=== PATIENT | female | born 1990 | race Two or more races ===

== ENCOUNTER 2024-03-16 06:50 | Inpatient (IN) | payer MEDICAID, OTHER ==
[~2024-03-16] VITALS: Ht 152.4 cm; Wt 91.2 kg
[2024-03-16] VITALS (9 sets, daily range): BP systolic 98–136; BP diastolic 47–70; PULSE 62–95; RESP 16–22; TEMP 97.4–98.5; O2SAT 95–100
[2024-03-16 07:35] LABS: Basophils # (auto) 0 10 ^3/uL (0-0.2); Basophils % (auto) 0.4 % (0.0-2.0); Eosinophils # (auto) 0.1 10 ^3/uL (0-0.8); Hematocrit 37.2 % (36.0-46.0); Hemoglobin 12.9 g/dL (12.2-16.2); Lymphocytes % (auto) 22.8 % (10.0-50.0); Mean Corpuscular Hemoglobin 31.2 pg (28.0-32.0); Mean Corpuscular Hgb Conc. 34.8 g/dL (32.0-36.0); Mean Corpuscular Volume 89.7 fL (80.0-100.0); Monocytes # (auto) 0.6 10 ^3/uL (0-1.3); Neutrophils # (auto) 6.1 10 ^3/uL (1.6-8.6); Neutrophils % (auto) 68.8 % (37.0-80.0); Platelet Count (auto) 176 10^3/uL (140-450); Red Blood Cells 4.14 10^6/uL (4.0-5.20); White Blood Cell 8.8 10^3/uL (4.4-10.8)
[2024-03-16 07:47] LABS: INR 0.94 (0.9-1.15); Partial Thromboplastin Time 25.5 SEC (24.5-34.5)
[2024-03-16 07:50] LABS: Alanine Aminotransferase 11 U/L (7-40); Albumin 4.1 g/dL (3.2-4.8); Anion Gap 7 (5-15); Aspartate Aminotransferase 24 U/L (13-40); BUN/Creatinine Ratio 13.8 (10.0-20.0); Bilirubin, Total 0.7 mg/dL (0.2-1.0); Calcium 9.8 mg/dL (8.7-10.4); Carbon Dioxide 25 mmol/L (20-31); Chloride 105 mmol/L (98-107); Glucose 79 mg/dL (74-106); Potassium 3.7 mmol/L (3.5-5.1); Sodium 137 mmol/L (136-145); Total Protein 7.1 g/dL (5.7-8.2)
[2024-03-16 07:51] LABS: Alkaline Phosphatase 146 U/L (46-116); Blood Urea Nitrogen 9 mg/dL (9-23)
[2024-03-16 08:38] LABS: Urine Bacteria None Seen /hpf (None Seen)
[2024-03-16 08:45] LABS: Urine Blood Negative /uL (Negative); Urine Clarity Turbid (Clear); Urine Color Yellow (Yellow); Urine Protein, UAD Negative (Negative); Urine Specific Gravity 1.019 (1.001-1.035); Urine Squamous Epithelial Cell MOD /hpf (<5); Urine Urobilinogen Normal (Negative); Urine WBC 2 /hpf (0 - 5); Urine pH 6.5 (5.0-9.0)
[2024-03-16 09:37] LABS: Barbiturate Scree,Urine Neg (NEGATIVE); Cannabinoid Screen, Urine Neg (NEGATIVE); Phencyclidine Screen, Urine Neg (NEGATIVE)
[2024-03-16 09:38] LABS: Amphetamine Screen, Urine Neg (NEGATIVE); Benzodiazephine Screen, Urine Neg (NEGATIVE); Cocaine Screen, Urine Neg (NEGATIVE); Opiate Scree,Urine Neg (NEGATIVE)
[2024-03-16] MEDS: LACTATED RINGER'S 1,000 ML IV ONE (11:27)
--- NOTE | 2024-03-16 12:32 | DVHHP2 ---
OB CC & HPI Date Date of Admission: Mar 16, 2024 Patient Identification: : 4 Para: 3 EGA: 39.2 wk Chief Complaints: Reason for admission: section History of Present Complaints Term IUP 39+ weeks, scheduled for repeat C/S and BTL Hx of C/S x 3. No acute complaints. No labor pain, leaking of fluid or vaginal bleeding Reports normal movements Past Medical History Cardiac: No pertinent Hx Pulmonary: No pertinent Hx Central Nervous System: No pertinent Hx GI: No pertinent Hx Hemotology/Oncology: No pertinent Hx Hepatobiliary: No pertinent Hx Psychiatric: No pertinent Hx Musculoskeletal: No pertinent Hx Rheumotologic: No pertinent Hx Infectious Disease: No peritnent Hx ENT: No pertinent Hx Renal/: No pertinent Hx Endocrine: No pertinent Hx Dermatology: No pertinent Hx Past Surgical History: OB History OB History Care: Good Care Ultrasounds: Normal mid trimester US Obstetrical Complications: None Medical Complications: None Allergies: Coded Allergies: NO KNOWN ALLERGIES (Unverified , 03/16/24) Current Medications Current Medications Medications (Trade) Dose Ordered Sig/Laura Route PRN Reason Start Time Stop Time Status Last Admin Lactated Ringer's 1,000 ml @ 125 mls/hr Q8H IV 03/16/24 07:15 Family & Social History Family/Social History Blood Type: A+ Rubella: immune RPR/VDRL: Negative GBS Status: Unknown Review of Systems Constitutional: No symptom reported Ears, Nose, & Throat: No symptom reported Eyes: No symptom reported Pulmonary/Respiratory: No symptom reported Cardiovascular: No symptom reported Gastrointestinal: No symptom reported Genitourinary: No symptom reported Musculoskeletal: No symptom reported Skin: No symptom reported Psychiatric: No symptom reported Endocrine: No symptom reported Hemotologic/Lymphatic: No symptom reported OB Admission Exam Physical Exam HEENT: TMs Normal, Fontanelles Normal, Nasal Mucosa Normal, Eyes non-injected, Oropharynx Normal, PERRLA, Moist Membranes, EOMI Heart: Rhythm Normal Lungs: Clear Abdomen: Non tender Extremities: Normal Reflexes: Normal Cervical Dilatation: None Effacement: 0% Station: Ballotable Membranes: Intact Heart Rate: 130's Accelerations: Accelerations Present Decelerations: No Decelerations Short Term Variability: Present Retirement Variability: Average (6-25) Contractions on Admission: >10 Minutes Apart Intensity: Mild OB Plan Plan Admitting Diagnosis: Term IUP 39+ wk, Prior C/S x 3 Desires Sterilization Plan: Section Other Plan: Repeat Section & BTL R/B/A of surgery, 1% failure rate of BTL discussed with patient. Understands procedure is permanent and not reversible. Informed consent obtained. BERLIN GRIFFIN DO Mar 16, 2024 12:32
[2024-03-16] MEDS: LACTATED RINGER'S 1,000 ML IV SCH (12:49)
[2024-03-16] MEDS: ceFAZolin 2 GM/D5W50ml 50 ML IV ONE (13:16)
[2024-03-16] MEDS ORDERED: ONDANSETRON HCL 4 MG/2 ML VIAL ONE (13:19)
[2024-03-16] MEDS ORDERED: oxyTOCIN 10 UNIT/ML 10ML VIAL ONE (13:19)
[2024-03-16] MEDS ORDERED: MORPHINE SULF PF 5 MG/10 ML VIAL ONE (13:19)
[2024-03-16] MEDS ORDERED: ePHEDrine SULFATE 50 MG/ML AMP ONE (13:58)
--- NOTE | 2024-03-16 15:02 | DVHOP ---
DATE OF SURGERY: 03/16/2024 PREOPERATIVE DIAGNOSES: * Term intrauterine , 39 and 1/2 weeks. * Previous section x 3. * Multiparity, requesting voluntary female sterilization. FINAL DIAGNOSES: * Term intrauterine , 39.3 weeks. * Previous section x 3. * Multiparity, requesting voluntary female sterilization. PROCEDURE PERFORMED: * Repeat low transverse section via Pfannenstiel skin incision. * Modified Khang bilateral tubal ligation. SURGEON: Joe Gray DO [employer] APPRENTICE: Odilon Goins NP TYPE OF ANESTHESIA: Spinal. ANESTHESIOLOGIST: Fernando Ren DO DESCRIPTION OF FINDINGS: Delivery of a liveborn male infant, cephalic presentation, nuchal cord x 1, clear amniotic fluid, scores of 9 and 9, weight pending. A thin lower uterine segment. Two-layer uterine closure. Normal bilateral fallopian tubes, ovaries and normal-appearing placenta. TECHNICAL PROCEDURE: After informed consent was obtained, the patient was taken to the operating room where her spinal anesthesia was found to be adequate. She was placed in the supine position with a slight leftward tilt. She was sterilely prepped and draped in the usual sterile fashion. A Pfannenstiel skin incision was made through the prior scar. This incision was carried down sharply to the underlying layer of fascia and peritoneum. The rectus muscles were dissected off the rectus fascia and entry into the peritoneal cavity was performed sharply with Metzenbaum scissors. The peritoneal incision was extended superiorly and inferiorly with good visualization of the bladder. The vesicouterine peritoneum was incised sharply with Metzenbaum scissors and a bladder flap created digitally. Using a second scalpel, the lower uterine segment was incised in a low transverse fashion. The amniotic fluid membranes were ruptured. The fluid was clear. The baby was in a cephalic presentation, right occiput transverse. The baby was then delivered atraumatically. There was a nuchal cord that was reduced at the time of delivery. After delivery of the , the nose and mouth were suctioned. The cord was clamped and cut. The infant handed off to waiting pediatric team. Cord blood was obtained. The placenta was then spontaneously delivered. The uterus was exteriorized and cleared of all clots and debris using moist laparotomy sponges. The uterine incision was repaired with #1 Stratafix PDS spiral. The uterine incision was closed in continuous running fashion in 2 layers with good tissue approximation and hemostasis obtained. Next, the left fallopian tube was found. It was traced to its fimbriated end. It was grasped with a John clamp at the mid isthmic portion and tied with 2 ties of 0 plain gut. A midsegment partial salpingectomy was performed. The cut ends were cauterized. The procedure was repeated on the contralateral fallopian tube in similar fashion. There was no bleeding from the mesosalpinx. The uterus was returned to the abdomen. The cul-de-sac and paracolic gutters were cleared of all clots and debris. The abdomen was irrigated with sterile water. Hemostasis was confirmed. There was a little bleeding from the peritoneal surface over the bladder that was controlled with cautery and SNoW was placed over this for added hemostasis. All instrumentation was removed from the patient's abdomen. I then proceeded to close the rectus fascia in continuous running fashion using #1 Stratafix suture with good tissue approximation. The subcutaneous tissue was irrigated. Bleeding points controlled with cautery. The subcutaneous tissue was closed with 2-0 plain gut in interrupted fashion and the skin closed in subcuticular fashion using 3-0 Monocryl on a curved needle. A sterile dressing was placed over the incision. The patient tolerated the procedure well. Sponge, lap and needle counts were correct x 4. INTRAOPERATIVE COMPLICATIONS: None. ESTIMATED BLOOD LOSS: 700 mL. POSTOPERATIVE CONDITION: Stable. SPECIMENS: Cord blood, placenta, segments of left and right fallopian tubes. MEDICATIONS: The patient received 2 grams of Ancef prior to skin incision and IV Pitocin at the time of cord clamp. DO ALPESH Bruno TID: [id number] RECEIPT: [id number] [facility]
[2024-03-16] MEDS ORDERED: HYDROmorphone HCL 2 MG/ML VL/or syr IV PRN ×3 (15:15→15:30)
[2024-03-16] MEDS ORDERED: ACETAMINOPHEN IV 1000 MG/100ML (10MG/ML) IV PRN (15:15)
[2024-03-16] MEDS ORDERED: MEPERIDINE HCL (25 MG/ML) 1ML VIAL IV PRN (15:15)
[2024-03-16] MEDS: ONDANSETRON HCL 4 MG/2 ML VIAL IV ONE (15:27)
[2024-03-16] MEDS ORDERED: NALOXONE HCL 0.4 MG/ML VIAL IV PRN (15:30)
[2024-03-16] MEDS ORDERED: diphenhdrAMINE HCL 50 MG/1 ML VL IV PRN (15:30)
[2024-03-16] MEDS ORDERED: ONDANSETRON HCL 4 MG/2 ML VIAL IV PRN ×2 (15:30)
[2024-03-16] MEDS ORDERED: IBUPROFEN 800 MG TAB PO PRN (15:30)
[2024-03-16] MEDS ORDERED: KETOROLAC TROMETH 30 MG/ML 1ML VIAL IV PRN (15:30)
[2024-03-16] MEDS ORDERED: ceFAZolin 1GM/50ML 50 ML IV SCH (15:30)
[2024-03-16] MEDS ORDERED: DexAMETHasone SOD PHOS 10MG/1ML VIAL INJ IV PRN (15:30)
[2024-03-16] MEDS: KETOROLAC TROMETH 30 MG/ML 1ML VIAL IV PRN (19:55)
[2024-03-16] MEDS: ONDANSETRON HCL 4 MG/2 ML VIAL ONE (19:56)
[2024-03-16] MEDS: ceFAZolin 1GM/50ML 50 ML IV SCH (21:38)
[2024-03-17] VITALS (12 sets, daily range): BP systolic 103–123; BP diastolic 55–84; PULSE 70–92; RESP 16–20; TEMP 97.8–98.3; O2SAT 94–97
[2024-03-17] MEDS ORDERED: ACETAMINOPHEN IV 1000 MG/100ML (10MG/ML) IV PRN (01:30)
[2024-03-17] MEDS: ACETAMINOPHEN IV 1000 MG/100ML (10MG/ML) IV PRN (03:16)
[2024-03-17] MEDS: NALBUPHINE HCL 10 MG/1ml INJECTION SUBCUT ONE (06:16)
[2024-03-17] MEDS: LACT. RINGERS/OXYTOCIN 20UNITS 1,000 ML IV SCH (06:17)
[2024-03-17 07:06] LABS: RPR Non Reactive (Non Reactive)
--- NOTE | 2024-03-17 07:09 | DVHPN2 ---
Progress Note Date Seen: Mar 17, 2024 Subjective POD#1 s/p R C/S and BTL S: Pain controlled lochia mild. No acute complaints. Feels well vital signs Vital Sign Date Time Temp Pulse Resp B/P (MAP) Pulse Ox O2 Delivery O2 Flow Rate FiO2 03/17/24 05:00 77 16 103/55 (71) 96 03/17/24 03:00 98.3 98.3 03/16/24 19:00 Room Air 0.0 Total Intake and Output 03/16/24 03/16/24 03/17/24 15:00 23:00 07:00 Output Total 650 ml 1000 ml Balance -650 ml -1000 ml medications Current Medications Medications Dose Ordered Sig/Laura Route Start Time Stop Time Status Last Admin Dose Admin Lactated Ringer's 1,000 ml @ 125 mls/hr Q8H IV 03/16/24 07:15 03/16/24 21:38 125 MLS/HR Diphenhydramine HCl 25 mg Q4HP PRN IV 03/16/24 15:30 Ondansetron HCl 4 mg Q4HP PRN IV 03/16/24 15:30 Ketorolac Tromethamine 30 mg Q6HP PRN IV 03/16/24 15:30 03/21/24 15:29 Cancel Oxytocin 1,000 ml @ 150 mls/hr Q6H40M IV 03/16/24 15:30 Hydromorphone HCl 1 mg Q2HP PRN IV 03/16/24 15:30 Ketorolac Tromethamine 30 mg Q8HPRN PRN IV 03/16/24 15:30 03/21/24 15:29 03/16/24 19:55 30 MG Ibuprofen 800 mg Q8HP PRN PO 03/16/24 15:30 Cefazolin Sodium 50 ml @ 100 mls/hr Q8H IV 03/16/24 22:00 03/17/24 14:29 03/17/24 05:51 100 MLS/HR laboratory and microbiology Laboratory Tests 03/16/24 07:19 Test 03/16/24 07:19 Range/Units Serum Glucose 79 74-106 mg/dL Objective O: AFVSS Chest: heart and lung sounds normal. Abd soft, non-tender, fundus firm, BS, no rebound or guarding, Incision - dressing and incision clean, dry, intact Ext Neg Homans, Non-tender, edema Lochia - minimal Labs Pending Assessment/Plan POD#1 s/p R C/S and BTL, doing well Plan: Supportive care Check CBC today Ambulate pain control Plan discussed with: Patient STEFANIEBERLIN CASTRO Mar 17, 2024 07:09
[2024-03-17] MEDS ORDERED: IBUP-1455 PO (07:11)
[2024-03-17] MEDS ORDERED: HYDR1TAB97 PO (07:11)
[2024-03-17 08:07] LABS: Basophils # (auto) 0 10 ^3/uL (0-0.2); Basophils % (auto) 0.1 % (0.0-2.0); Eosinophils # (auto) 0 10 ^3/uL (0-0.8); Eosinophils % (auto) 0.1 % (0.0-7.0); Hematocrit 33.3 % (36.0-46.0); Hemoglobin 11.2 g/dL (12.2-16.2); Lymphocytes # (auto) 1.8 10 ^3/uL (0.4-5.4); Lymphocytes % (auto) 12.5 % (10.0-50.0); Mean Corpuscular Hemoglobin 30.6 pg (28.0-32.0); Mean Corpuscular Hgb Conc. 33.7 g/dL (32.0-36.0); Mean Corpuscular Volume 90.8 fL (80.0-100.0); Monocytes % (auto) 6.7 % (0.0-12.0); Neutrophils # (auto) 11.6 10 ^3/uL (1.6-8.6); Neutrophils % (auto) 80.6 % (37.0-80.0); Platelet Count (auto) 177 10^3/uL (140-450); Red Blood Cells 3.67 10^6/uL (4.0-5.20); Red Cell Distribution Width 12.9 % (11.8-14.3); White Blood Cell 14.5 10^3/uL (4.4-10.8)
[2024-03-17] MEDS ORDERED: ACETAMINOPHEN IV 1000 MG/100ML (10MG/ML) IV ONE (11:15)
[2024-03-17] MEDS ORDERED: HYDROcodone-ACET 5/325MG TAB PO PRN (14:45)
[2024-03-17] MEDS: SIMETHICONE 80 MG CHEWABLE TABLET PO SCH (17:45)
[2024-03-17] MEDS: HYDROcodone-ACET 5/325MG TAB PO PRN (17:48)
[2024-03-17] MEDS: DOCUSATE SOD 100 MG CAP PO SCH (22:17)
[2024-03-18 03:00] VITALS: BP 111/65; PULSE 82; RESP 18; TEMP 98.3; O2SAT 96
[2024-03-18 07:30] VITALS: BP 99/59; PULSE 72; RESP 18; TEMP 98.4; O2SAT 98
--- NOTE | 2024-03-18 09:06 | DVHPN2 ---
Chief Complaints Patient reports: No new complaints, Feels better Nursing reports: No new complaints, No abdominal pain, No chest pain, No dizziness, No cough Objective Vitals Vital Signs Date Time Temp Pulse Resp B/P (MAP) Pulse Ox O2 Delivery O2 Flow Rate FiO2 03/18/24 03:00 98.3 82 18 111/65 (80) 96 98.3 03/17/24 19:00 Room Air 0.0 Medications Current Medications Medications (Trade) Dose Ordered Sig/Laura Route PRN Reason Start Time Stop Time Status Last Admin Acetaminophen/ Hydrocodone Bitart ([place] 5/325MG Tab) 1 tab Q4HPRN PRN PO FOR PAIN 1-6 03/17/24 14:45 03/18/24 02:59 Acetaminophen/ Hydrocodone Bitart ([place] 5/325MG Tab) 2 tab Q4HPRN PRN PO FOR PAIN 7-10 03/17/24 14:45 Dimethicone (Mylicon Tab) 80 mg QID PO 03/17/24 18:00 03/18/24 08:15 Docusate Calcium (Surfak Capsule) 240 mg DAILY PO 03/18/24 10:00 Docusate Sodium (Colace Capsule) 100 mg Q12HR PO 03/17/24 22:00 03/17/24 22:17 General: Normal Head/Eyes: Normal ENT: Normal Neck: Normal Lungs: Normal Cardiovascular: Normal Heart Murmur: no murmur Abdominal: Normal Musculoskeletal: Normal Extremities: Normal Skin: Normal Neurological: Normal Studies Laboratory Tests 03/17/24 07:47 03/16/24 07:19 Test 03/16/24 07:19 Range/Units Serum Glucose 79 74-106 mg/dL Ass/Plan Assessment POD #2 section stable improved Plan see dc summary see dc orders CAYLA BABCOCK DO Mar 18, 2024 09:06
--- NOTE | 2024-03-18 09:08 | DVHDS2 ---
Obstetrics Discharge Summary Obstetrics Discharge Summary Date of Admission: Mar 16, 2024 Date of Discharge: Mar 18, 2024 Reason For Admission: Section (Repeat), Tubal Ligation Procedures: NST Intrapartum Procedures: (Low Cervical Transverse) Procedures: None Operative Complicat: None Discharge Diagnosis: Term -Delivered Discharge Information: Activity (pelvic rest 6 weeks), Diet (Routine), Medications (Rx sent for narcotics by primary surgeon), Instructions (bleeding and fever precautions), Discharge to (Home), Discarge date (01/17/2024) CAYLA BABCOCK DO Mar 18, 2024 09:08
[2024-03-18] MEDS: DOCUSATE CALCIUM 240 MG CAP PO SCH (10:30)
[2024-03-18 11:00] VITALS: BP 110/66; PULSE 88; RESP 18; TEMP 98.2; O2SAT 97
[2024-03-18 14:48] VITALS: BP 127/76; PULSE 84; RESP 18; TEMP 98.2; O2SAT 97
[2024-03-19 11:06] LABS: Treponema Pallidum Ab LC Non Reactive (Non Reactive)
== END 2024-03-18 15:33 | disposition home or self-care (01) | DRG 539 ==
LOC: LDRP 06:50
PROVIDERS: ADMIT Obstetrics & Gynecology; ATTEND Obstetrics & Gynecology
PROC: 0UB70ZZ Excision of Bilateral Fallopian Tubes, Open Approach (ICD-10-PCS; 2024-03-16)
PROC: 10D00Z1 Extraction of Products of Conception, Low, Open Approach (ICD-10-PCS; principal; 2024-03-16 13:38)
DX: O34.211 Maternal care for low transverse scar from previous cesarean delivery (principal); R71.0 Precipitous drop in hematocrit; Z30.2 Encounter for sterilization; Z37.0 Single live birth; Z3A.39 39 weeks gestation of pregnancy
CPT/HCPCS: 36415; 59025; 80053; 80307; 81001; 85025; 85610; 85730; 86592; 86780; 86850; 86900; 86901; 94760; 94762; 96360; 96361; 96374; 96375; G0378; J0131; J1885; J2405; J2590